=== PATIENT | female | born 1995 | race Caucasian/White ===

== ENCOUNTER 2024-04-27 08:41 | Emergency (ER) | payer BC ==
[2024-04-27] VITALS (11 sets, daily range): BP systolic 109–117; BP diastolic 63–71; PULSE 80–90; RESP 13–21; TEMP 97.9–98.7; O2SAT 94–99
[~2024-04-27] VITALS: Ht 170.2 cm; Wt 195.0 kg
[2024-04-27] MEDS: nitroGLYCERIN 0.4mg SUBLingual tab SL ONE (09:16)
[2024-04-27] MEDS: ondansetron/PF 4mg/2ml inj IV ONE (10:37)
[2024-04-27] MEDS: LORazepam 2 mg/ml vial IV ONE (10:38)
[2024-04-27] MEDS: glucagon, human recombinant 1mg kit IM ONE (10:41)
[2024-04-27] MEDS: nitroGLYCERIN 0.4mg SUBLingual tab SL PRN (11:09)
[2024-04-27] MEDS ORDERED: dexamethasone sod phosphate 4mg/ml inj. ONE (12:49)
[2024-04-27] MEDS ORDERED: sevoflurane 250ml liquid IH ONE (13:00)
[2024-04-27] MEDS ORDERED: meperidine/PF 25mg/ml syringe ONE (13:00)
[2024-04-27] MEDS ORDERED: OMEP40CA21 PO (13:56)
== END 2024-04-27 15:36 | disposition home or self-care (01) ==
LOC: ER 08:42
DX: T18.128A Food in esophagus causing other injury, initial encounter (principal); Z88.0 Allergy status to penicillin; Z79.899 Other long term (current) drug therapy; W44.F3XA Food entering into or through a natural orifice, initial encounter; Y93.89 Activity, other specified; Y92.89 Other specified places as the place of occurrence of the external cause; Y99.8 Other external cause status
CPT/HCPCS: 43247; 96372; 96374; 96375; 99285; J1100; J1610; J2060; J2175; J2405; J7030; Z7512; A4620; C1769; C1889; J0330; J2704